=== PATIENT | male | born 1990 | race African-American/Black ===

== ENCOUNTER 2020-03-03 19:38 | Emergency (ER) | payer MEDICAID, OTHER ==
[~2020-03-03] VITALS: Ht 190.5 cm; Wt 75.0 kg
[2020-03-03] MEDS ORDERED: IBUPROFEN 600MG TABLET PO ONE (23:00)
[2020-03-04 00:14] VITALS: BP 112/68
== END 2020-03-04 00:34 ==
LOC: ER 19:38
DX: R07.89 Other chest pain (principal); I25.10 Atherosclerotic heart disease of native coronary artery without angina pectoris; J45.909 Unspecified asthma, uncomplicated
CPT/HCPCS: 71045; 93005; 99285